=== PATIENT | male | born 1950 | race Caucasian/White ===

== ENCOUNTER 2017-06-25 07:38 | Inpatient (IN) | payer OTHER ==
[2017-06-25] VITALS (7 sets, daily range): BP systolic 94–125; BP diastolic 55–78
[~2017-06-25] VITALS: Ht 175.3 cm; Wt 120.7 kg
[~2017-06-25 07:38] MED LIST: ASPIRIN325; AUGMENTIN 875875 MG PO; FLAGYL500 MG PO; HYDROCODONE-AP1 EACH PO; LEVOTHYROXIN0.088 MG PO; MORPHINE SULFAT15 M3 PO; OMEPRAZOLE40 MG PO; OXYCONTIN20 M1 PO; PHENERGAN 25 MG25 M1 PO; SYNTHROID 0.0.088 M1 PO; TORADOL 10 MG T10 MG PO; TRAMADOL 50 MG50 MG PO; VITAMIN D1000 UNI1 PO; ZOCOR 20 MG TAB20 M1 PO
[2017-06-25] MEDS ORDERED: ZANTAC 150MG T150 MG PO (07:53)
[2017-06-25] MEDS ORDERED: NEURONTIN600 MG PO (07:53)
[2017-06-25] MEDS ORDERED: ZOLOFT25 MG PO ×2 (07:53→12:06)
[2017-06-25 08:13] LABS: HEMATOCRIT 46.4 % (42.0-52.0); HEMOGLOBIN 16.3 gm/dL (14.0-18.0); MCH 34.1 pg (26.0-34.0); MCHC 35.2 g/dL (28.0-37.0); MPV 8.3 fl. (7.2-11.1); NUCLEATED RBCS 0 /100WBC; PLATELET COUNT* 197 thou/uL (150-400); RBC 4.78 mil/uL (4.50-6.00); RDW-CV 13.3 % (10.5-14.5); WBC 13.1 thou/uL (4.0-11.0)
[2017-06-25 08:36] LABS: ABSOLUTE LYMPHOCYTES 0.3 thou/uL (0.8-5.3); ABSOLUTE MONOCYTES 0.3 thou/uL (0.0-1.2); ABSOLUTE NEUTROPHILS 12.6 thou/uL (1.6-8.1); PLATELET ESTIMATE ADEQUATE
[2017-06-25 08:46] LABS: CREATININE 1.2 mg/dL (0.6-1.3); POTASSIUM 4.1 mmol/L (3.5-5.1)
[2017-06-25 08:51] LABS: ALBUMIN 3.8 g/dL (3.4-5.0); TOTAL BILIRUBIN 0.5 mg/dL (<0.1-1.0); TOTAL PROTEIN 7.5 g/dL (6.4-8.2)
[2017-06-25 08:58] LABS: URINE BILIRUBIN NEGATIVE (Negative); URINE BLOOD 1+ (Negative); URINE CLARITY CLEAR; URINE COLOR YELLOW; URINE GLUCOSE-RANDOM NEGATIVE (Negative); URINE KETONES NEGATIVE (Negative); URINE LEUKOCYTES-REFLEX NEGATIVE (Negative); URINE NITRITE-REFLEX NEGATIVE (Negative); URINE PROTEIN NEGATIVE (Negative); URINE UROBILINOGEN 0.2 E.U./dl (0.2-1.0)
[2017-06-25 09:04] LABS: SQUAMOUS 0-3 Few /LPF (0-3)
[2017-06-25 09:05] LABS: BACTERIA-REFLEX None Seen /HPF (None Seen); CASTS None Seen /LPF (None Seen); CRYSTALS None Seen /LPF (None Seen); MUCUS 4-6 Moderate strn/LPF (None Seen); URINE RBC 0-2 Rare /HPF (0-2); URINE WBC-REFLEX None Seen /HPF (0-5)
--- NOTE | 2017-06-25 09:39 | NUR ---
Princess CUEVAS AT BEDSIDE FOR NEBULIZER TREATMENT.
[2017-06-25 10:06] LABS: INFLUENZA A ANTIGEN None Detected (None Detect); INFLUENZA B ANTIGEN None Detected (None Detect)
[2017-06-25] MEDS ORDERED: LEVOTHYROXINE PO (12:05)
[2017-06-25] MEDS ORDERED: MOBIC15 MG PO (12:06)
[2017-06-25] MEDS ORDERED: TYLENOL EXTRA500 MG PO (12:07)
--- NOTE | 2017-06-25 12:43 | NUR ---
ASSUMED CARE OF PATIENT AT 1130 AFTER TRANSFER TO ROOM 218 FROM EMERGENCY DEPARTMENT. PATIENT AWAKE, ALERT, AND ORIENTED APPROPRIATELY. PHYSICAL ASSESSMENT COMPLETED AND CHARTED. COMPLAINED OF GENERALIZED PAIN. RATING PAIN 4/10. DID NOT REQUEST PAIN MEDICATION AT THIS TIME. MEDICATION RECONCILIATION COMPLETED. PATIENT HAS BEEN EDUCATED THAT HE IS A FALL RISK DUE TO DIZZINESS AND WEAKNESS. PATIENT STATED UNDERSTANDING. FALL CONTRACT SIGNED AND ON PATIENT'S CHART. WILL TRANSFER AND AMBULATE WITH ASSISTANCE FROM STAFF. HAS BEEN EDUCATED HOW TO USE CALL LIGHT APPROPRIATELY. DENIES NEEDS AT THIS TIME. CALL LIGHT WITHIN REACH. NURSING WILL CONTINUE TO MONITOR.
--- NOTE | 2017-06-25 18:12 | NUR ---
PATIENT REMAINS ALERT AND ORIENTED APPROPRIATELY. IV TO RIGHT HAND INFILTRATED. NEW IV STARTED TO LEFT HAND. PATIENT TOLERATED WELL. NO APPARENT NEEDS. AT BEDSIDE. CALL LIGHT WITHIN REACH. NURSING WILL CONTINUE TO MONITOR.
--- NOTE | 2017-06-25 23:32 | NUR ---
ASSUMED CARE OF PATIENT AT APROXIMATELY . AGREED WITH PRIOR ASSSESSMENT. PATIENT RESTING QUIETLY IN BED AT THIS TIME.
[2017-06-26] VITALS (8 sets, daily range): BP systolic 92–129; BP diastolic 55–78
--- NOTE | 2017-06-26 05:03 | NUR ---
ALERT AND ORIENTED. RESTING QUIETLY IN BED THROUGHOUT NIGHT. DENIES NEED FOR PAIN MEDICATION. NAUSEA MEDICATION GIVEN X2 AND HELPFUL. STILL HAVING DIARRHEA. CALL LIGHT WITHIN REACH. WILL CONTINUE TO MONITOR. REMAINS ON HEART MONITOR.
[2017-06-26 05:11] LABS: HEMATOCRIT 39.2 % (42.0-52.0); MCHC 33.8 g/dL (28.0-37.0); MCV 100.6 fL (80.0-100.0); MPV 7.8 fl. (7.2-11.1); RBC 3.9 mil/uL (4.50-6.00); RDW-CV 13.2 % (10.5-14.5)
[2017-06-26 05:24] LABS: CALCIUM 7.1 mg/dL (8.5-10.1); CREATININE 1.2 mg/dL (0.6-1.3); MAGNESIUM 1.4 mg/dL (1.8-2.4); POTASSIUM 4.2 mmol/L (3.5-5.1)
[2017-06-26 05:28] LABS: HEMOGLOBIN 13.3 gm/dL (14.0-18.0)
--- NOTE | 2017-06-26 06:38 | NUR ---
PATIENT STATED HE HAS HAD 4 LOOSE STOOLS THIS SHIFT. WILL SEND STOOL SAMPLE TO LAB. NAUSEA MEDICATION GIVEN EARLIER IN SHIFT AND HELPFUL. DENIES PAIN OR NAUSEA AT THIS TIME. WILL PLACE ON ISOLATION WHILE WAITING FOR RESULTS.
--- NOTE | 2017-06-26 13:19 | NUR ---
RECEIVED PT CARE 0700. PT IS ALERT AND ORIENTED X4. VSS. CHEMICAL OPERATOR TRACING SR. PATIENT DENIES SOA. O2 SAT 95% ON ROOM AIR. IVF INFUSING. ORTHOSTATIC BP'S UNREMARKABLE. PATIENT UP AD ALAN IN ROOM WITH BATHROOM PRIVILEDGES. GAIT IS STEADY. AM ASSESSMENT CHARTED. MEDS PER MAY. STOOL SENT FOR C-DIFF EARLY THIS AM. NEED A NEW SAMPLE FOR ENTERIC CULTURES DUE TO PREVIOUS SAMPLE ALREADY LEFT THE LAB. PATIENT C/O LEFT ARM PAIN. PRN PAIN MEDICATION GIVEN WITH GOOD RELIEF. NEW GI CONSULT CALLED THIS AM. PATIENT UPDATED ON PLAN OF CARE AND IS AGREEABLE. TELE DISCONTINUED PER DR DAVILA. PLAN TO TRANSFER OFF 2ND FLOOR IF BED AVAILABLE. WILL CONTINUE PLAN OF CARE.
--- NOTE | 2017-06-26 14:55 | EKG ---
[place] [address] ELECTROCARDIOGRAM REPORT Name: BULMARO HOLLEY Room: [address] ADM IN .R.#: [id number] Admission: 06/25/17 Attend Phys: Gray Guerrero MD Discharge: Date of : 46 Report #: [id number] THIS REPORT FOR: //name// [facility] ED Test Date: 2017-06-25 Test Time: 09:15:02 Pat Name: BULMARO HOLLEY Department: Room: [facility] Gender: M Mechanical Design Technician: Lucy GARCIA : 1950 Requested By: Ashley Daniel Order Number: [id number] MD: Chava Benitez Measurements Intervals [place] Rate: 114 P: 30 AR: 201 QRS: 17 QRSD: 77 T: QT: 343 QTc: 473 Interpretive Statements Sinus tachycardia Nonspecific T abnormalities, lateral leads Compared to ECG 04/13/2015 11:09:42 T-wave abnormality now present Sinus bradycardia no longer present Electronically Signed On 06-26-2017 14:55:20 CDT by Chava Benitez [email or web address] <ELECTRONICALLY SIGNED> By: Chava Benitez MD, FAC 06/26/17 1455 0915 4 Chava Benitez MD, [facility] /EPI
--- NOTE | 2017-06-26 14:56 | EKG ---
[place] [address] ELECTROCARDIOGRAM REPORT Name: BULMARO HOLLEY Room: [address] ADM IN .R.#: [id number] Admission: 06/25/17 Attend Phys: Gray Guerrero MD Discharge: Date of : 46 Report #: [id number] THIS REPORT FOR: //name// [facility] ED Test Date: 2017-06-25 Test Time: 10:59:40 Pat Name: BULMARO HOLLEY Department: Room: [facility] Gender: M Anime Artist: Lucy GARCIA : 1950 Requested By: Ashley Daniel Order Number: [id number] MD: Chava Benitez Measurements Intervals [place] Rate: 127 P: 26 FL: 196 QRS: 16 QRSD: 75 T: 170 QT: 304 QTc: 442 Interpretive Statements Sinus tachycardia Nonspecific T abnrm, anterolateral leads Compared to ECG 04/13/2015 11:09:42 Sinus bradycardia no longer present Electronically Signed On 06-26-2017 14:56:02 CDT by Chava Benitez [email or web address] <ELECTRONICALLY SIGNED> By: Chava Benitez MD, FACC 06/26/17 1456 1059 1059 Chava Benitez MD, [facility] /EPI
[2017-06-27 04:32] LABS: CALCIUM 7.6 mg/dL (8.5-10.1); CREATININE 1.2 mg/dL (0.6-1.3); MAGNESIUM 2.2 mg/dL (1.8-2.4); POTASSIUM 5.1 mmol/L (3.5-5.1)
--- NOTE | 2017-06-27 05:42 | NUR ---
PT SLEPT FAIRLY WELL OVERNIGHT. UP AD ALAN IN ROOM WITH STEADY GAIT. CDIFF NEGATIVE, REMAINS ON CONTACT ISOLATION FOR OTHER STOOL RESULTS PENDING. PT DENIES PAIN OR PROBLEMS, DENIES BM THIS SHIFT. L HAND IVF INFUSING PER PUMP. AM LABS DRAWN. GI TO SEE PT TODAY. PT HOPEFUL FOR DISCHARGE HOME TO FOLLOW UP OUTPT IF NEEDED WITH GI. PO ABX GIVEN ORDERED. ABLE TO USE CALL LITE AND MAKE NEEDS KNOWN.
[2017-06-27 08:00] VITALS: BP 129/78
[2017-06-27 10:48] VITALS: BP 129/78
--- NOTE | 2017-06-27 11:14 | NUR ---
CM SPOKE TO THE PATIENT TO DISCUSS HOME SITUATION, DISCHARGE PLANNING, AND TO INFORM OF THE ROLE OF CM. PATIENT ALERT AND ORIENTED. PATIENT ACTIVE AND DRIVES. PATIENT USES 0 DME. PATIENT HAS NO HX OF HH OR SNF. PATIENT HAS NO QUESTIONS OR CONCERNS AT THIS TIME, AND DOES NOT BELIEVE THAT HE WILL NEED ANYTHING AT D/C. CM WILL REMAIN AVAILABLE TO ASSIST AND FOLLOW NEEDED.
--- NOTE | 2017-06-27 13:13 | NUR ---
RESUMED CARE THIS AM, UP AD ALAN, DENIES PAIN, NO DISTRESS, SEE ASSMNT FOR DETAILS. DISCHARGE ORDERS RECEIVED, IV ACCESS REMOVED WITHOUT INCIDFENT. PATIENT DRESSED SELF, PERSONAL EFFECTS GATHERED BY , ACCOUNTED FOR, IN COMPANY OF PATIENT. DISCHARGE INSTRUCTION AND FOLLOW UP APPT DISCUSSED WITH AND GIVEN TO PATIENT, DENIES QUESTIONS. PATIENT WALKED TO MAIN ENTRANCE IN COMPANY OF THIS NURSE IN STABLE CONDITION.
== END 2017-06-27 10:55 | disposition home or self-care (01) | DRG 872 ==
LOC: M.ERS 07:38 → M.TBA-ER 10:15 → M.3W 10:15 → M.2W 11:32 → M.3W 06-26 15:29
PROVIDERS: Nurse Practitioner Family; ADMIT Internal Medicine
DX: A41.89 Other specified sepsis (principal); A08.4 Viral intestinal infection, unspecified; K21.9 Gastro-esophageal reflux disease without esophagitis; E86.9 Volume depletion, unspecified; K22.70 Barrett's esophagus without dysplasia; M47.892 Other spondylosis, cervical region; Z79.899 Other long term (current) drug therapy; Z88.8 Allergy status to other drugs, medicaments and biological substances

== ENCOUNTER 2018-05-11 17:38 | Inpatient (IN) | payer OTHER ==
[~2018-05-11] VITALS: Ht 177.8 cm; Wt 115.7 kg
[~2018-05-11 17:38] MED LIST changes: +LEVOTHYROXINE PO; +MOBIC15 MG PO; +NEURONTIN600 MG PO; +TYLENOL EXTRA500 MG PO; +ZANTAC 150MG T150 MG PO; +ZOLOFT25 MG PO
[2018-05-11 17:46] VITALS: BP 136/81
[2018-05-11] MEDS ORDERED: IBUPROFEN 600600 M1 PO (17:50)
[2018-05-11] MEDS ORDERED: TRAMADOL 50 MG50 MG PO (17:50)
[2018-05-11 18:14] LABS: HEMATOCRIT 48.5 % (42.0-52.0); HEMOGLOBIN 16.7 gm/dL (14.0-18.0); MCH 34.5 pg (26.0-34.0); MCHC 34.4 g/dL (28.0-37.0); MCV 100.2 fL (80.0-100.0); MPV 8.3 fl. (7.2-11.1); NUCLEATED RBCS 0 /100WBC; PLATELET COUNT* 198 thou/uL (150-400); RBC 4.84 mil/uL (4.50-6.00); WBC 12.2 thou/uL (4.0-11.0)
[2018-05-11 18:23] LABS: ANION GAP 7 mmol/L (7-16); BUN 18 mg/dL (7-18); CALCIUM 8.8 mg/dL (8.5-10.1); CHLORIDE 100 mmol/L (98-107); CO2 28 mmol/L (21-32); GLUCOSE 126 mg/dL (70-99); POTASSIUM 3.7 mmol/L (3.5-5.1); SODIUM 135 mmol/L (136-145)
[2018-05-11 18:24] LABS: APTT 33.6 Seconds (25.0-31.3); PROTIME 10.7 Seconds (9.20-11.50)
[2018-05-11 18:30] LABS: ALBUMIN 4.1 g/dL (3.4-5.0); ALKALINE PHOSPHATASE 89 U/L (46-116); LIPASE 65 U/L (73-393); SGOT 19 U/L (15-37); SGPT 38 U/L (30-65); TOTAL BILIRUBIN 0.5 mg/dL (<0.1-1.0); TOTAL PROTEIN 8.2 g/dL (6.4-8.2); TROPONIN-I LEVEL <0.06 ng/mL (<0.06)
[2018-05-11 18:43] LABS: ABSOLUTE LYMPHOCYTES 0.1 thou/uL (0.8-5.3); ABSOLUTE MONOCYTES 0.5 thou/uL (0.0-1.2); ABSOLUTE NEUTROPHILS 11.6 thou/uL (1.6-8.1)
[2018-05-11 18:44] LABS: PLATELET ESTIMATE ADEQUATE
[2018-05-11 19:39] LABS: URINE BILIRUBIN NEGATIVE (Negative); URINE BLOOD TRACE (Negative); URINE CLARITY CLEAR; URINE COLOR YELLOW; URINE GLUCOSE-RANDOM NEGATIVE (Negative); URINE KETONES NEGATIVE (Negative); URINE LEUKOCYTES NEGATIVE (Negative); URINE NITRITE NEGATIVE (Negative); URINE PROTEIN NEGATIVE (Negative); URINE SPECIFIC GRAVITY <= 1.005 (1.005-1.030); URINE UROBILINOGEN 0.2 E.U./dl (0.2-1.0)
[2018-05-11 22:34] VITALS: BP 115/58
--- NOTE | 2018-05-11 23:00 | NUR ---
ADMITTED FROM ER. NO ACUTE DISTRESS AT THIS TIME, STATES NO NAUSEA SINCE CAME TO ER AND ONLY 1 BM WHILE THERE. SEE ADMISSION ASSESSMENT AND HX. TELEMETRY APPLIED SHOWING ST. IV FLUIDS RESUMED. WILL CONT TO MONITOR AND ASSIST NEEDED.
[2018-05-11 23:09] VITALS: BP 124/74
[2018-05-11] MEDS ORDERED: SIMVASTATIN40 MG PO (23:30)
[2018-05-12 04:00] VITALS: BP 113/82
--- NOTE | 2018-05-12 06:13 | NUR ---
AWAKE MOST OF NIGHT DUE TO NAUSEA AND DIARRHEA. PT HAD 2 LOOSE YELLOW STOOLS. ZOFRAN GIVEN X1, NO EMESIS. GAIT STEADY TO AND FROM BR. IV FLUIDS INFUSING. TELEMETRY CONT TO SHOW ST. HOURLY ROUNDING OBSERVED.
[2018-05-12 08:00] VITALS: BP 114/80
--- NOTE | 2018-05-12 09:00 | NUR ---
ASSUMED CARE OF PT AT 0730. PT RESTING IN BED. PT A&0X4, COMPLAINS OF NAUSEA AND DIARRHEA, REQUESTING SOMETHING FOR BOTH. DR RANGEL NOTIFIED. AWAITING ORDERS AT THIS TIME. PT TRACING ST ON THE CHARGEMASTER ANALYST. ON RA SAT UPPER 90'S. DENIES ANY SHORTNESS OF BREATH. IVF. PT UP AD ALAN IN ROOM. PT ON CLEAR LIQUID DIET. PT GOAL FOR TODAY IS TO CONTROL NAUSEA AND DIARRHEA AND ADVANCE DIET TOLERATED. AM ASSESSMENT CHARTED. MEDICATIONS PER MAY. PT REPOSITIONS SELF. HOURLY ROUNDING OBSERVED. BED IN LOW POSITION. CALL LIGHT WITHIN REACH. WILL CONTINUE PLAN OF CARE.
--- NOTE | 2018-05-12 09:20 | EKG ---
[place] [address] ELECTROCARDIOGRAM REPORT Name: BULMARO HOLLEY PREM Room: [address] ADM IN [facility].#: [id number] Admission: 05/11/18 Attend Phys: Angel Sanders Discharge: Date of : 46 Report #: [id number] THIS REPORT FOR: //name// [facility] ED Test Date: 2018-05-11 Test Time: 18:45:00 Pat Name: BULMARO HOLLEY Department: Room: [facility] Gender: M Base Manager: : 1950 Requested By: Flakita Matamoros Order Number: [id number] MD: David Bob Measurements Intervals [place] Rate: 107 P: 44 TN: 201 QRS: 16 QRSD: 82 T: 28 QT: 374 QTc: 499 Interpretive Statements Sinus tachycardia Borderline T wave abnormalities Borderline prolonged QT interval Compared to ECG 06/25/2017 10:59:40 no change Electronically Signed On 05-12-2018 9:20:40 PHOTO EQUIPMENT TECHNICIAN by David Bob [email or web address] <ELECTRONICALLY SIGNED> By: David Bob MD, [facility] 05/12/18 0920 1845 44 David Bob MD, [facility] /EPI
[2018-05-12 11:58] VITALS: BP 128/74
[2018-05-12] MEDS ORDERED: ONDANSETRON HCL4 M2 PO (12:55)
[2018-05-12] MEDS ORDERED: PHENERGAN 25 MG25 M1 PO (12:55)
[2018-05-12 13:34] LABS: CALCIUM 7.8 mg/dL (8.5-10.1); MAGNESIUM 1.9 mg/dL (1.8-2.4); POTASSIUM 3.4 mmol/L (3.5-5.1)
[2018-05-12 13:55] VITALS: BP 128/74
--- NOTE | 2018-05-12 14:16 | NUR ---
CM completed initial assessment. Discussed home situation & d/c plan w/pt. A&)x4.pt dressed & awaiting w/c to leave. pt present and driving pt home. pt d/c'g to home. no needs at this time.
--- NOTE | 2018-05-12 14:23 | NUR ---
PT ADVANCED DIET TOLERATED. TOLERATED WITH NO DIFFICULTIES. NAUSEA AND DIARRHEA SUBSIDED WITH NO INTERVENTION. DR RANGEL HERE TO SEE PT AND ORDERS RECEIVED FOR DISCHARGE. ONE TIME DOSE OF MAGNESIUM AND ONE TIME DOSE OF POTASSIUM GIVEN PO PER ELECTROLYTE PROTOCOL. DISCHARGE INSTRUCTIONS, CARE NOTES, SCRIPTS AND FOLLOW UP APPTS GIVEN TO PT. PT COMMUNICATES UNDERSTANDING OF DISCHARGE TEACHING. IV AND PRESS SET UP PERSON REMOVED. PT DISCHARGED WITH ALL BELONGINGS AND PAPERWORK VIA WHEELCHAIR WITH NURSING STAFF TO SPOUSE OWN PERSONAL VEHICLE.
== END 2018-05-12 14:20 | disposition home or self-care (01) | DRG 392 ==
LOC: M.ERS 17:38 → M.2W 21:04 → M.TBA-ER 21:04 → M.2W 23:08
PROVIDERS: Physician Assistant; ADMIT Internal Medicine
DX: A08.4 Viral intestinal infection, unspecified (principal); K21.9 Gastro-esophageal reflux disease without esophagitis; E86.0 Dehydration; E83.42 Hypomagnesemia; K58.0 Irritable bowel syndrome with diarrhea; Z88.8 Allergy status to other drugs, medicaments and biological substances; Z88.4 Allergy status to anesthetic agent; Z98.1 Arthrodesis status; Z79.899 Other long term (current) drug therapy

== ENCOUNTER → 2018-11-01 | Outpatient (CLI) | payer OTHER ==
[~2018-11-01] MED LIST changes: +IBUPROFEN 600600 M1 PO; +ONDANSETRON HCL4 M2 PO; +SIMVASTATIN40 MG PO
== END ==
LOC: M.RAD 10:50
DX: S22.42XA Multiple fractures of ribs, left side, initial encounter for closed fracture (principal); I51.7 Cardiomegaly; X58.XXXA Exposure to other specified factors, initial encounter; Y93.89 Activity, other specified; Y92.89 Other specified places as the place of occurrence of the external cause; Y99.8 Other external cause status

== ENCOUNTER → 2018-12-19 | Outpatient (CLI) | payer OTHER | LOC: M.RAD 10:13 | DX: M25.561 Pain in right knee (principal); G89.29 Other chronic pain ==

== ENCOUNTER 2019-05-25 10:37 | Emergency (ER) | payer OTHER ==
[~2019-05-25] VITALS: Ht 177.8 cm; Wt 111.1 kg
[2019-05-25] MEDS ORDERED: AUGMENTIN 500-1 EACH PO (11:00)
[2019-05-25 11:23] VITALS: BP 160/78
== END 2019-05-25 11:23 | disposition home or self-care (01) ==
LOC: M.ERS 10:37
DX: S60.512A Abrasion of left hand, initial encounter (principal); E03.9 Hypothyroidism, unspecified; K21.9 Gastro-esophageal reflux disease without esophagitis; Z88.6 Allergy status to analgesic agent; Z88.8 Allergy status to other drugs, medicaments and biological substances; W54.0XXA Bitten by dog, initial encounter; Y93.89 Activity, other specified; Y92.89 Other specified places as the place of occurrence of the external cause; Y99.8 Other external cause status

== ENCOUNTER → 2020-11-05 | Outpatient (CLI) | payer OTHER ==
[~2020-11-05] MED LIST changes: +AUGMENTIN 500-1 EACH PO
== END ==
LOC: M.RAD 16:10
PROVIDERS: ATTEND Internal Medicine
DX: R06.02 Shortness of breath (principal); J84.9 Interstitial pulmonary disease, unspecified; R91.8 Other nonspecific abnormal finding of lung field

== ENCOUNTER 2021-02-20 09:18 | Emergency (ER) | payer OTHER ==
[~2021-02-20] VITALS: Ht 177.8 cm; Wt 106.6 kg
[2021-02-20] MEDS ORDERED: LIPITOR40 MG PO (09:30)
[2021-02-20] MEDS ORDERED: FUROSEMIDE 40 M40 MG PO (09:30)
[2021-02-20] MEDS ORDERED: CARVEDILOL12.5 MG PO (09:31)
[2021-02-20] MEDS ORDERED: HYDROCODON-ACE1 EAC7 PO (09:39)
[2021-02-20] MEDS ORDERED: PREDNISONE 20 M20 M1 PO (09:39)
[2021-02-20 10:14] VITALS: BP 122/72
== END 2021-02-20 10:15 | disposition home or self-care (01) ==
LOC: M.ERS 09:18
DX: M10.9 Gout, unspecified (principal); K21.9 Gastro-esophageal reflux disease without esophagitis; E03.9 Hypothyroidism, unspecified; I50.9 Heart failure, unspecified; Z79.899 Other long term (current) drug therapy; Z88.5 Allergy status to narcotic agent